=== PATIENT | female | born 1950 | race Caucasian/White ===

== ENCOUNTER 2021-08-16 17:06 | Emergency (ER) | payer MEDICARE, MEDICAID ==
[~2021-08-16] VITALS: Ht 167.6 cm; Wt 81.0 kg
[2021-08-16 17:10] VITALS: BP 153/57
== END 2021-08-16 17:54 | disposition home or self-care (01) ==
LOC: ER 17:07
DX: M77.8 Other enthesopathies, not elsewhere classified (principal); M25.522 Pain in left elbow; E78.00 Pure hypercholesterolemia, unspecified; G89.29 Other chronic pain; Z88.6 Allergy status to analgesic agent
CPT/HCPCS: 99283